=== PATIENT | male | born 1965 | race Caucasian/White ===

== ENCOUNTER 2023-04-01 21:44 | Emergency (ER) | payer MEDICAID, OTHER ==
[~2023-04-01] VITALS: Ht 175.3 cm; Wt 131.0 kg
[2023-04-01 21:54] VITALS: O2SAT 98
[2023-04-02] MEDS ORDERED: IBUPROFEN 600MG TABLET PO ONE
[2023-04-02] MEDS ORDERED: IBUP-2030 MT (00:31)
[2023-04-02 00:40] VITALS: BP 140/91; PULSE 77; RESP 18; TEMP 98.6
== END 2023-04-02 00:59 | disposition home or self-care (01) ==
LOC: ER 21:44
DX: M25.562 Pain in left knee (principal)
CPT/HCPCS: 73562; 99283; Z7610; L1830